=== PATIENT | female | born 1970 | race Caucasian/White ===

== ENCOUNTER 2025-06-05 16:09 | Outpatient (CLI) | payer OTHER, SELFPAY ==
--- NOTE | 2025-06-05 16:11 | DI.RAD_ITS ---
Exam(s) XR LUMBAR SPINE AP, LAT EXAM: XR LUMBAR SPINE AP, LAT CLINICAL HISTORY: leg weakness and back pain. TECHNIQUE: 2D digital imaging was performed of the lumbar spine. Three images were obtained. AP, lateral and L5-S1 spot views were obtained. COMPARISON: No exams were available for comparison FINDINGS: BONES: No fracture or destructive lesion. There are endplate osteophytes seen at multiple levels of the lower thoracic and upper lumbar spine. There are degenerative changes of the facets seen from L3-4 through L5-S1. DISKS: There is disc space narrowing at T12-L1. ALIGNMENT: There is a mild right convex thoracolumbar scoliosis. Lumbar spinal alignment is within normal limits. No spondylolysis or spondylolisthesis. SOFT TISSUE: Normal. IMPRESSION: Moderate degenerative changes are seen in the lumbar spine. DATA REPOSITORY: RADIATION DOSE DELIVERED:
--- NOTE | 2025-06-05 16:11 | DI.RAD_ITS ---
Exam(s) XR PELVIS AP EXAM: XR PELVIS AP CLINICAL HISTORY: eval leg pain. TECHNIQUE: 2D digital imaging was performed.One images were obtained. COMPARISON: No exams were available for comparison FINDINGS: BONES: No acute fracture is present. No bony destructive lesion is seen. There is an enthesophyte at the greater trochanter of the left femur. JOINTS: No dislocation present. There is mild joint space narrowing of the hips bilaterally. Subchondral cysts are seen in the acetabuli bilaterally. SOFT TISSUE: Normal. IMPRESSION: Mild degenerative changes seen in the hips bilaterally. DATA REPOSITORY: RADIATION DOSE DELIVERED:
== END 2025-06-05 16:10 | disposition home or self-care (01) ==
LOC: DIORS 16:10
PROVIDERS: PCP Internal Medicine; Visit Provider Student in an Organized Health Care Education/Training Program
DX: R29.898 Other symptoms and signs involving the musculoskeletal system (principal); M79.606 Pain in leg, unspecified; M47.816 Spondylosis without myelopathy or radiculopathy, lumbar region; M16.0 Bilateral primary osteoarthritis of hip
CPT/HCPCS: 72100; 72170

== ENCOUNTER 2025-09-04 01:33 | Outpatient (CLI) | payer OTHER, SELFPAY ==
[2025-09-04 15:09] LABS: HCT 41.9 % (36.0-46.0); HGB 14.1 g/dL (11.2-15.7); MCH 31.5 pg (27.0-33.0); MCHC 33.7 % (32.0-36.0); MCV 94 fL (80-95); MPV 10.5 fL (8.0-11.0); Platelet Count 304 10^3/uL (130-400); RBC 4.47 10^6/uL (3.93-5.22); RDW 12.1 % (11.7-14.6); RDW-SD 42.0 fL; WBC 6.15 10^3/uL (4.4-10.8)
[2025-09-04 15:26] LABS: Anion Gap 7.2 mmol/L (3-11); BUN 15 mg/dL (9-23); CO2 28.8 mmol/L (20.0-31.0); Calcium 9.5 mg/dL (8.3-10.6); Chloride 105 mmol/L (98-107); Glucose 82 mg/dL (74-106); Potassium 4.1 mmol/L (3.5-5.1); Sodium 141 mmol/L (136-145)
== END 2025-09-04 01:34 | disposition home or self-care (01) ==
LOC: LBO 01:34 → LBN 15:00
PROVIDERS: PCP Internal Medicine; Visit Provider Student in an Organized Health Care Education/Training Program
DX: M17.12 Unilateral primary osteoarthritis, left knee (principal); Z01.818 Encounter for other preprocedural examination
CPT/HCPCS: 80048; 85027

== ENCOUNTER 2025-09-04 14:22 | Outpatient (CLI) | payer OTHER, SELFPAY ==
--- NOTE | 2025-09-04 13:00 | DI.RAD_ITS ---
Exam(s) XR KNEE LT 1V XR STANDING ALIGNMENT EXAM: XR STANDING ALIGNMENT and XR knee LT 1 V CLINICAL HISTORY: L TKR Planning. TECHNIQUE: 2D digital imaging was performed. Five images were obtained. COMPARISON: CR XR KNEE COMPLETE MIN 4V LT from 11/13/2023 CR XR PELVIS AP from 06/05/2025 FINDINGS: BONES: There is asymmetric joint space narrowing in the hips bilaterally consistent with osteoarthritis. In the left knee, there is marked narrowing of both the medial femoral tibial and patellofemoral joints. There osteophytes seen in all 3 joint compartments. There is no significant joint effusion. In the right knee, moderate degenerative changes are present characterized by joint space narrowing and osteophytes. The findings are most marked in the lateral femoral tibial joint. The ankles are well maintained.There is no significant leg length discrepancy. SOFT TISSUE: Normal. IMPRESSION: Marked osteoarthritis in the left knee, moderate osteoarthritis of the right knee. DATA REPOSITORY: RADIATION DOSE DELIVERED:
== END 2025-09-04 14:23 | disposition home or self-care (01) ==
LOC: DIORS 14:23
PROVIDERS: PCP Internal Medicine; Visit Provider Physician Assistant
DX: M17.12 Unilateral primary osteoarthritis, left knee (principal); M17.11 Unilateral primary osteoarthritis, right knee
CPT/HCPCS: 73560; 77073

== ENCOUNTER 2025-09-16 05:34 | Day surgery (SDC) | payer OTHER, SELFPAY ==
[2025-09-16] VITALS (31 sets, daily range): BP systolic 117–156; BP diastolic 55–92; PULSE 61–84; RESP 10–26; TEMP 35.9–36.5; O2SAT 92–98; BMI 44.7
--- NOTE | 2025-09-16 07:01 | W.ANESPRE ---
General Info Date of Service Date Performed: 09/16/25 Height: 5 ft 7 in Weight: 129.6 kg Body Mass Index (BMI): 44.7 Surgical Procedure: Operation Date: 09/16/25 07:40 Proposed Procedure Side Surgeon p Knee Total Arthroplasty Left Alexx Ziegler MD Meds Allergies and Home Medications Allergies Allergy/AdvReac Type Severity Reaction Status Date / Time Bleach (Sodium Hypochlorite) Allergy Severe Skin Rash Verified 09/16/25 06:12 Home Medication ?Medication ?Instructions ?Recorded clotrimazole 1 % topical cream 1 applic topical BID 12/17/24 nystatin 100,000 unit/gram topical 1 applic topical DAILY 12/17/24 cream tirzepatide (weight loss) 5 mg/0.5 5 mg subcut QWEEK 02/20/25 mL subcutaneous pen injector (Zepbound) diphenhydramine HCl 25 mg capsule 25 mg PO QHS PRN 09/04/25 docusate sodium 100 mg capsule 100 mg PO DAILY 09/04/25 (Colace) psyllium husk 0.4 gram capsule 0.4 g PO DAILY 09/04/25 (Daily Fiber) acetaminophen 500 mg tablet 1,000 mg (2 x 500 mg) PO Q8H PRN 09/16/25 pain #90 tabs aspirin 81 mg tablet,delayed 81 mg PO BID 30 days #60 tabs 09/16/25 release celecoxib 200 mg capsule (Celebrex) 200 mg PO BID PRN #60 caps 09/16/25 dexamethasone 4 mg tablet 4 mg PO DAILY #2 tabs 09/16/25 docusate sodium 100 mg capsule 100 mg PO BID #28 caps 09/16/25 (Colace) gabapentin 300 mg capsule 300 mg PO QHS #14 caps 09/16/25 oxycodone 5 mg tablet 5 mg PO Q4H PRN #18 tabs 09/16/25 pantoprazole 40 mg tablet,delayed 40 mg PO DAILY #14 tabs 09/16/25 release Current Visit Medications: Current Medications Generic Name Dose Route Start Last Admin Trade Name Freq PRN Reason Stop Dose Admin Acetaminophen 1,000 mg 09/16/25 06:00 Acetaminophen 500 Mg Tab PO 09/16/25 23:59 PREOP ARMANDO Celecoxib 400 mg 09/16/25 06:00 Celecoxib 200 Mg Cap PO 09/16/25 23:59 PREOP ARMANDO Gabapentin 300 mg 09/16/25 06:00 Gabapentin 300 Mg Cap PO 09/16/25 23:59 PREOP ARMANDO Ringer's Solution 1,000 mls @ 80 mls/hr 09/16/25 06:00 IV 09/16/25 23:59 INFUSION ARMANDO Cefazolin Sodium 3,000 mg/ 100 mls @ 200 mls/hr 09/16/25 06:00 Sodium Chloride IV 09/16/25 23:59 PREOP ARMANDO Tranexamic Acid/Sodium Chloride 1,000 mg in 100 mls @ 600 mls/hr 09/16/25 06:00 IVPB 09/16/25 23:59 PREOP ARMANDO Sodium Chloride 0 ml 09/16/25 06:00 Normal Saline Flush 10 Ml Syr IV 09/16/25 23:59 PRN PRN Sodium Chloride 0 ml 09/16/25 06:00 Normal Saline 10 Ml Vial IJ 09/16/25 23:59 DIRECTED PRN Sterile Water 0 ml 09/16/25 06:00 Water,Injection,Sterile 10 Ml Vial IJ 09/16/25 23:59 DIRECTED PRN PFSH Active Problems Active Problems: Problem Status Onset Code Lumbar spinal stenosis Acute M48.061 Lumbar spondylosis Acute M47.816 Osteoarthritis of left knee Acute M17.12 Vitamin D deficiency Acute E55.9 Umbilical hernia Acute K42.9 Subclinical hypothyroidism Acute E03.8 PTSD (post-traumatic stress disorder) Acute F43.10 (nonalcoholic steatohepatitis) Acute K75.81 Morbid obesity Acute E66.01 Menorrhagia Acute N92.0 Hernia of anterior abdominal wall Acute K43.9 Depressive disorder Chronic F32.A Chronic fatigue syndrome Acute G93.32 Asthma Chronic J45.909 Medical History Medical History Family history of blood clots Constipation CSF leak Surgical History Surgical History History of endometrial biopsy History of knee surgery History of hysterectomy History of ventral hernia repair Tobacco Smoking/Tobacco Use Status: Former Tobacco Use Passive smoking exposure: No Alcohol Alcohol Intake: former Substance Use Substance use type: does not use Vital Signs and Lab Results Vital Signs Most Recent Vital Signs in EMR: Most Recent Vital Signs Temp Pulse Resp BP Pulse Ox 36.5 C 71 20 148/72 H 98 09/16/25 06:25 09/16/25 06:25 09/16/25 06:25 09/16/25 06:25 09/16/25 06:25 Lab Results Complete Blood Count: WBC, (4.4-10.8) 6.15 10^3/uL 09/04/25, 13:45 RBC, (3.93-5.22) 4.47 10^6/uL 09/04/25, 13:45 Hgb, (11.2-15.7) 14.1 g/dL 09/04/25, 13:45 Hct, (36.0-46.0) 41.9 % 09/04/25, 13:45 Plt Count, (130-400) 304 10^3/uL 09/04/25, 13:45 Complete Metabolic Panel: Sodium, (136-145) 141 mmol/L 09/04/25, 13:45 Potassium, (3.5-5.1) 4.1 mmol/L 09/04/25, 13:45 Chloride, (98-107) 105 mmol/L 09/04/25, 13:45 Carbon Dioxide, (20.0-31.0) 28.8 mmol/L 09/04/25, 13:45 BUN, (9-23) 15 mg/dL 09/04/25, 13:45 Creatinine, (0.55-1.02) 0.67 mg/dL 09/04/25, 13:45 Est GFR (CKD-EPI 2020), (mL/min/1.73m2) 91.57 09/04/25, 13:45 Calcium, (8.3-10.6) 9.5 mg/dL 09/04/25, 13:45 Glucose, (74-106) 82 mg/dL 09/04/25, 13:45 Anesthesia Assessment and Plan Anesthesia History Personal History: No History of Anesthesia Complications Family History: No Family History of Anesthesia Complications Exercise Tolerance Exercise Tolerance: Metabolic Equivalents<4 Pertinent Negatives Pertinent Negatives: No Symptoms of GERD, No Major Cardiovascular Symptoms or Complaints and No Major Pulmonary Symptoms or Complaints Cardiac & Pulmonary Exam Cardiac Exam: Normal S1/S2 Heart Sounds Pulmonary Exam: Clear Bilateral Breath Sounds (diminished) Implantable Cardiac Device Does patient have a Pacemaker or an ICD?: No Airway Exam Known Difficult Airway: No Mallampati Class: 3 Mouth Opening: Normal (> 3cm) Thyromental Distance: Less than 3 cm Neck Range of Motion: Full ROM Neck Circumference: Thick Teeth Condition: Normal Dentition ASA Classification ASA Score: ASA 3 Emergency Case?: No NPO Status NPO Status: NPO Clears >2 hours, Solids >8 hours Status Status: History of Hysterectomy Anesthesia Plan Resuscitation Status: Full Code Anesthesia Technique: Spinal Anesthesia Airway Planned: Natural Airway Pain Management: Surgeon and patient request nerve block Monitors Used: Standard Monitors
--- NOTE | 2025-09-16 07:02 | PDOC.DSDIS_ITS ---
Date of service: 09/16/25 Discharge Plan Disposition Patient Disposition: Home Condition: Good Discharge Details Reason For Visit: Left knee DJD Attending Provider: Alexx Ziegler Primary Care Provider: Sandy Mahoney Home Meds and New Rx's Prescriptions: New celecoxib [Celebrex] 200 mg capsule 200 mg PO BID PRNQty: 60 0RF Rx Instructions: Take one tablet twice daily for pain and inflammation aspirin 81 mg tablet,delayed release (DR/EC) 81 mg PO BID 30 Days Qty: 60 0RF acetaminophen 500 mg tablet 1,000 mg PO Q8H PRN Qty: 90 0RF Rx Instructions: Take two tablets up to every 8 hours as needed for pain pantoprazole 40 mg tablet,delayed release (DR/EC) 40 mg PO DAILY Qty: 14 0RF Rx Instructions: Take one tablet once daily dexamethasone 4 mg tablet 4 mg PO DAILY Qty: 2 0RF Rx Instructions: Take one tablet once daily for two days docusate sodium [Colace] 100 mg capsule 100 mg PO BID Qty: 28 0RF gabapentin 300 mg capsule 300 mg PO QHS Qty: 14 0RF Rx Instructions: Take one tablet at bedtime oxycodone 5 mg tablet 5 mg PO Q4H PRNQty: 18 0RF Rx Instructions: Take one tablet up to every 4 hours as needed for severe postoperative pain Continued diphenhydramine HCl 25 mg capsule 25 mg PO QHS PRN docusate sodium [Colace] 100 mg capsule 100 mg PO DAILY psyllium husk [Daily Fiber] 0.4 gram capsule 0.4 g PO DAILY clotrimazole 1 % cream 1 applic topical BID nystatin 100,000 unit/gram cream 1 applic topical DAILY Zepbound 5 mg/0.5 mL pen injector 5 mg subcut QWEEK Discontinued acetaminophen [Acetaminophen Extra Strength] 500 mg tablet 500 mg PO ONCE Patient Comments: 1000 mg dose naproxen sodium [Aleve] 220 mg capsule 220 mg PO ONCE Patient Comments: 440 mg Discharge Instructions Additional Instructions: Total Knee Discharge Instructions Activity: The most important activity is to walk and to work on gentle motion (both flexion and extension). You should try to take short walks a few times a day. It is important that when resting you work on keeping the knee straight. Avoid putting a pillow behind the knee as this will encourage flexion. Work on range of motion exercises as provided by Physical Therapy. - Start outpatient physical therapy within 2 weeks. - You should wear the MO hose on both legs for 2 weeks. You may remove these at night. You may also use any compression sock in place of the MO hose. - Utilize [employer] to review exercises, see videos on exercises and o btain basic information pertaining to your surgery and your recovery. Dressing: Remove the Jayden wrap by 2 days after your surgery and put on the MO stocking given to you from the hospital. Keep the surgical dressing (underneath the JAYDEN wrap) in place for at least one week. After the first week it may be removed and replaced with light gauze and tape or nothing. The wound and dressing may get wet after 3 days but avoid soaking the dressing or otherwise it will need to be changed. Many people prefer covering the dressing with cling wrap (saran wrap) to minimize it from getting soaked. If it gets wet, just pat dry. If it starts to peel off then it will need to be changed. Medications: - You should take Tylenol and anti-inflammatory Celebrex as your primary pain control medications. If the Celebrex is too expensive or not covered, please call the office for another alternative (Advil/Ibuprofen or Naproxen/Aleve) - You have been prescribed a stronger pain medication Oxycodone for breakthrough pain, take as needed as prescribed. - You have also been prescribed a stomach acid reduction agent Pantoprozole to help reduce stomach acid and reflux. - You have been prescribed Gabapentin to take at night for restlessness and nerve pain. - You will be taking Aspirin 81mg twice a day for DVT prevention unless instructed otherwise. - You have also been prescribed Decadron to take to control post-operative nausea and pain. You will start this tomorrow. - If you have constipation you should take Colace (which has been prescribed) or Miralax (which is available [id number]). It takes most people 3-4 days to have a bowel movement. Follow-up: 2 weeks If you have any acute concerns or questions, please do not hesitate to contact the office at [phone]. You may contact Dr. Ziegler with any questions after hours through the hospital at [phone] or on his cell phone at [phone]. Stand Alone Forms: Portal Information Referrals: Alexx Ziegler MD [ [id number] STAFF PHYSICIAN, Orthopaedic Surgical] Equipment/Supplies: Walker Activity:: Elevate Remove Dressings/Wound Care:: Do Not Remove Shower/Bathe:: Cover Diet:: As Tolerated Discharge Orders Discharge Orders: Discharge Order (Routine); Ordered 09/16/25 Ordered By: Rosy Meza
[2025-09-16] MEDS: Lactated Ringers 1,000 ML 80 ML IV (07:12)
[2025-09-16] MEDS: Celecoxib 200 MG CAP 400 MG PO (07:14)
[2025-09-16] MEDS: Acetaminophen 500 MG TAB 1000 MG PO (07:14)
[2025-09-16] MEDS: Gabapentin 300 MG CAP PO (07:14)
[2025-09-16] MEDS: ceFAZolin 3,000 MG in Normal Saline 100 ML 200 MG IV (07:33)
[2025-09-16] MEDS: TRANEXAMIC ACID/SOD. CHL. 1,000 MG/100 ML BAG 600 MG IVPB (07:47)
--- NOTE | 2025-09-16 07:58 | W.ANESNERVE ---
Nerve Block Single Injection Procedure Date and Time Date Performed: 09/16/25 Procedure Start: 07:20 Location Where Procedure Performed Procedure Location: Day Surgery Unit Reason Performed: Postoperative Analgesia Requesting Provider: Alexx Ziegler Timeout Performed Timeout Performed: Yes Monitoring Used ECG, Blood Pressure, SpO2 and See EMR for corresponding vital signs Sterility Sterility: Hand Hygiene, Surgical Cap, Surgical Mask, Sterile Gloves, Sterile Drape/Sheet and Chlorhexidine Sedation Given During Procedure Sedation Given (Indicate Dose Given): Versed IV Dose:: 2 mg Patient Mental Status Patient Mental Status: Sedate with meaningful communication Nerve Block 1st Nerve Block: Laterality: Left Block Type: Adductor Canal Ultrasound Image Saved?: Yes Needle / Catheter Used: 120mm SonoPlex II Local Anesthetic Bolus (Indicate Dose Given): Lidocaine used for local infiltration of skin, Injected in 3-5ml increments after negative blood aspiration, Blood noted on aspiration (First pass positive heme, needle removed, line cleared and re-inserted, no further heme ), Bupivacaine 0.25% Dose:: 10 ml and Exparel Dose:: 10 ml Additives (Indicate Dose Given): None Ultrasound: Sterile probe cover and gel used Nerve Stimulator: Supplement to Ultrasound use, Expected parasthesia or motor response elicited and No twitch or parasthesia noted < 0.5 mA Paresthesia: None Procedure Tolerated: No Complications and Patient tolerated well Procedure Outcome: Successful Procedure Comment: Difficult visualization due to body habitus Performed By: Sonam Rodriguez
[2025-09-16] MEDS: ROPIvacaine/EPI/CLONIDINE/KET 50 ML SYRINGE IJ (08:12)
--- NOTE | 2025-09-16 09:06 | W.PM.OP ---
Operative Note Operative Note PRE-OP DIAGNOSIS: Left Knee Osteoarthritis POST-OP DIAGNOSIS: same PROCEDURE: Left Total Knee Replacement SURGEON: Alexx Ziegler HAND TENNIS BALL COVERER: Rosy Meza ANESTHESIA TYPE: Spinal Refer to Anesthesia Record ESTIMATED BLOOD LOSS: 100 PATHOLOGY: none sent TOURNIQUET TIME: 0 COMPLICATIONS: None Patient was transported to: PACU Patient's condition: stable Implants: 1. Depuy Attune Cementless Cruciate Retaining Femoral Component, Size 5 2. Depuy Attune Cementless Fixed Bearing Tibial Component, Size 5 3. Depuy Attune 5x8mm CR/FB Poly 4. Depuy Attune Patellar Component, Size 35mm Indications: I have seen Sima in clinic for symptoms of knee arthritis, confirmed with radiographic findings. She has exhausted nonoperative methods and was having significant limitations in daily function and desired better function and less pain. I discussed the technical details of a knee replacement. I explained the risks of the procedure to include, but not limited to, bleeding, infection, pain, stiffness, fracture, damage to nerves and vessels, damage to muscles and tendons, loosening, need for repeat procedure, blood clot and cardiopulmonary demise. Despite these risks, Sima elected to proceed. Findings: There was significant signs of arthritis throughout the knee involving all 3 compartments with large osteophytes throughout. Procedure Description: Sima was greeted in the preoperative holding area where the correct side was identified and marked. The consent was reviewed with the patient and signed. The history and physical was updated. All questions were answered. Preoperative medications were administered: Acetaminophen 1000mg, Celebrex 400mg, and Gabapentin 300mg. An adductor canal block was then administered by the anesthesia team in the DSU. She was taken back to the operating room. A spinal anesthestic was then administered. The patient was placed into the supine position on the operating room table. Posts were placed for positioning during the procedure. All bony prominences were well padded. Prophylactic antibiotics in the form of Cefazolin were administered. 1g of Tranxemic Acid was given intravenously within 30 minutes of incision. The left leg was then prepped with Chloraprep and draped in a standard fashion with impervious stockinette. A second prep with Chloraprep was performed prior to application of Iodine impregnated skin protection. A timeout to confirm correct identity, side and site, procedure, allergies, anesthesia, and medical concerns was performed. With the knee in some flexion, a midline incision was made overlying the knee. Full thickness skin flaps were raised once the extensor mechanism was encountered. These were raised medially and laterally. Any bleeding was controlled with electrocautery. Once the extensor mechanism was fully exposed, a medial parapatellar arthrotomy was performed in a flexed position. All bleeding from the arthrotomy and the geniculate arteries was coagulated. A medial subperiosteal peel was performed with electrocautery to the midcoronal plane. The fat pad was removed while keeping the patellar tendon protected. The anterior distal femur synovium was removed for later visualization. The ACL and PCL were resected and the anterior horn of the lateral meniscus was transected. The knee was then flexed with the patella everted. Large osteophytes from the tibia were removed. Large osteophytes from the femur were removed. There were notable arthritic changes throughout all 3 compartments of the knee. Using a step drill, and based on preoperative templating, the femoral canal was entered. This was done with a step drill without any difficulty. The intramedullary distal femoral cut guide was inserted, set to a 5 degree valgus cut and 9mm cut thickness. The distal femoral cut guide was then held in position and pinned. With the soft tissues protected, the distal cut was performed. This was passed over a few times to ensure a planar cut. I then turned attention to the tibia. The extramedullary guide was placed onto the leg. The distal aspect was slid medial to adjust for position of center of ankle and stay in line with shaft of the tibia. Approximately 5 degrees of posterior slope was kept in the proximal cutting guide. The center of the guide was aligned with the PCL. The stylus was used to assess cut thickness. The medial side, most involved side, was set for a 6mm cut, which corresponded to 8 to 9 mm laterally. This was then held in position and pinned into place with 2 additional pins and a cross pin for stability. The medial and lateral collateral ligaments were protected and the cut was performed. With this completed, it was assessed and noted to be of appropriate dimensions. The guide was removed. A spacer block was inserted and the knee was brought into extension. The 7mm spacer block provided full extension, without hyperextension and with stability of both the medial and lateral collateral ligaments was assessed. The pins from the femur and the tibia were then removed. The distal femur was then sized. The anterior stylus was placed onto the lateral ridge of the anterior femur. This indicated a size 5 femur. The external rotation of the guide was adjusted to 0 degrees to match the epicondylar axis, perpendicular to Salome?s line. The 4-in-1 cutting guide was the placed. The posterior medial femur cut was evaluated and appeared of good thickness. The spacer block was inserted underneath the cutting guide and stability was confirmed in 90 degrees of flexion. An roseanna wing was used to confirm appropriate position of the anterior cut to avoid notching. This cutting guide was ensured to be flush on the cut surface and then pinned into place with headed pins. While protecting the soft tissues, quad tendon, and collateral ligaments, the anterior and posterior cuts were performed with a saw. The central two pins were removed and the posterior and anterior chamfers were cut next. The notch-cutting guide was placed. This was pinned to lateralize the femoral component as much as possible while keeping it flush on the cut surface. This was then pinned into position. A reciprocating saw was used to make the notch cut. A rasp smoothed the cut surfaces. The medial and lateral menisci were removed. A trial femoral component was then inserted, impacted down to the cut surfaces, and the lug holes were drilled. A provisional trial tibial component was placed and the knee was brought through range of motion. The polyethylene was trialed until there was good flexion and extension with excellent stability to the medial and lateral collaterals. The patella was tracking without thumbs. A size 8mm polyethylene component provided the best range of motion and stability with less than 2mm gapping with medial and lateral stress and full extension without significant hyperextension. The tibial cut surface was fully exposed. The tibia was then sized as a 5. The tibia had been previously marked during trialing to correspond to the center of the tibial component to help with rotation. The trial was aligned to this ni, approximately rotated to the medial 1/3rd of the tibial tubercle. The trial was pinned into place. The tibia was prepared with a reamer and a keel punch and lug holes. The knee was then brought into extension and the patella was measured as 24mm. Using the patellar clamp and cut guide, this was resected to a flat surface with at least 13mm of thickness remaining. The size 35mm patella fit the best. This was oriented and then clamped into position. The lugs were drilled. The trial components were removed. The final components were opened on the back table. The periosteal and capsular tissues, especially posteriorly, around the knee were then systematically injected with a periarticular cocktail consisting of 246mg of Ropivacaine, 0.5mg of Epinephrine, 0.08mg of Clonidine, and 30mg of Ketorolac, diluted to 100cc. On the back table, with the implants opened. The cement was mixed. One batch of high viscosity cement was prepared with vacuum assistance. After the cement was ready a small amount was placed on the cut surface of the patella and the patellar button was clamped into position and held. The cementless knee components were placed. Starting with the tibial component, the tibia was subluxed anteriorly and the lug holes of the component were lined up. The tibia was then impacted with an impactor and mallet until the tibial component was in contact with the tibia. Then, the femoral component was inserted. The lug holes were aligned and the component was impacted into position. The final polyethylene component was inserted. The knee was irrigated with Surgiphor Betadine solution. This was allowed to sit in the knee for 3 minutes and then it was irrigated out with saline. After the cement had finally cured, approximately 15min, the clamp was removed from the patella and the knee was taken through range of motion. The patella was tracking with a no-thumbs technique. A complete synovectomy was performed around the periphery of the patella. The capsule was then reapproximated with a No. 1 Vicryl at multiple locations. The capsule was finally closed with a No. 2 Stratafix, barbed suture. Deep tissues were then reapproximated with 0 Vicryl and 2-0 Vicryl. The skin was closed with a running 3-0 Monocryl in a subcuticular fashion. This was reinforced with skin glue. A Mepilex silver dressing was applied along with a [id number] ALEXANDRO wrap. A CryoCuff was applied. Sima was transferred to the hospital bed without difficulty an suffering no apparent complication. She has a good prognosis. Physical therapy will start today and without restrictions, weight-bearing as tolerated. Aspirin 81mg BID will be used for DVT prophylaxis. Date of Procedure: 09/16/25
--- NOTE | 2025-09-16 10:38 | PT.INIE ---
PT Notes Visit Reasons: Left knee DJD Physical Therapy Day Surgery Initial Evaluation Date: 09/16/2025 Referring Doctor: JOSE Dejesus PT Orders: PT CONSULT: S/P Ortho surgery Precautions: WBAT through the left LE with AD. Patient Profile/Admitting Diagnosis: Sima is a 55-year-old female with degenerative joint disease of the left knee and is status post left total knee arthroplasty on postoperative day 0. Adductor canal block was done and spinal anesthesia used intraoperatively. EBL 100 mL. PMHX: All Active Problems (Updated 06/06/25 @ 11:45 by Alexx Ziegler MD) Lumbar spinal stenosis (Acute) Lumbar spondylosis (Acute) Osteoarthritis of left knee (Acute) DEPO MEDROL 06/05/25; 02/20/25Vitamin D deficiency (Acute) Umbilical hernia (Acute) Subclinical hypothyroidism (Acute) PTSD (post-traumatic stress disorder) (Acute) (nonalcoholic steatohepatitis) (Acute) Morbid obesity (Acute) Menorrhagia (Acute) Hernia of anterior abdominal wall (Acute) Depressive disorder (Chronic) Chronic fatigue syndrome (Acute) Asthma (Chronic) Medical History Constipation History of endometrial biopsy CSF leak Surgical History History of knee surgery History of hysterectomy History of ventral hernia repair Social History/Home Situation: Will be staying at her sister's house as she recovers. Has a half step to get into sister's house. 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 Equipment Owned/DME: None Subjective: Patient reported 3?4/10 pain in the left knee which nurse Magaly is aware of and has been managing. Denied headache, chest pain, and lightheadedness throughout session. Objective: General Observation: Resting in bed. ALEXANDRO wraps to left LE. Cryocuff to left knee. TEDS to right leg and foot. Mental Status: A and O x 4 Pain: 3-4/10 in the L knee at rest and with movement ROM: Right Lower Extremity: Hip flexion WFL. Hip abduction WFL. Knee flexion WFL. Ankle dorsiflexion WFL. Ankle plantarflexion WFL. Left Lower Extremity: Hip flexion WFL. Hip abduction WFL. Knee flexion 20 degrees to 85 degrees. Knee extension -20 degrees. Ankle dorsiflexion WFL. Ankle plantarflexion WFL. Strength: Right Lower Extremity: Hip flexors 5/5. Hip abductors 5/5. Knee flexors 5/5. Knee extensors 5/5. Ankle dorsiflexors 5/5. Ankle plantarflexors 5/5. Left Lower Extremity:Hip flexors 4-/5. Hip abductors 4-/5. Knee flexors3-/5. Knee extensors 3-/5. Ankle dorsiflexors 4/5. Ankle plantarflexors 5/5. Sensation: Intact this to pain and light pressure in bilateral lower extremities Bed Mobility/Transfers: Minimal cueing provided for use of B hands as needed for support, movement sequence, AD management, and posture to reduce fall risk and minimize pain report Supine to sit stand by assist Sit to stand contact guard assist Stand to sit stand by assist with FWW Bed to chair stand by assist with FWW Gait: Facilitate safe and correct performance of level surface ambulation covering a distance of 150 feet with initially step to gait pattern but was able to progress to step through towards the latter part of the walking activity. Standby assist only using front wheeled walker with minimal verbal cueing provided for limb movement sequence, increased flexion on the left LE during swing phase on the left side, AD management, and posture to minimize pain report and reduce fall risk. Stairs: Guided patient with safe and correct negotiation of 3 x 4 inch steps and 2 x 6 inch steps while holding onto bilateral rails with step to gait pattern requiring only contact-guard assist and minimal verbal cueing for limb movement sequence, hand placement, weight distribution onto rail, increased flexion on the left during each ascent, and posture to minimize pain reported reduce fall risk. Balance: Static Sitting: Normal Dynamic Sitting: Good Static Standing: Fair Dynamic Standing: Fair Special Tests: Mobility Limitations Standardized Measure [facility] AM-PAC 6 clicks Basic Mobility Inpatient Short Form: Raw Score: 22 CMS Score: 21% deficit Informed Consent/Education: Patient instructed in purpose of PT consult. Packet containing TKA exercise protocol has been given to patient. Education and training on initial set of exercises that can be done at home have been completed with patient. Trained patient with correct performance of exercises below to maximize motor control, joint flexibility, soft tissue extensibility of the L knee musculature: Access Code: [email or web address] URL: [email or web address] Date: 04/25/2023 Prepared by: Monserrat Gilmore Exercises - Supine Quad Set - 1 x daily - 7 x weekly - 1 sets - 10 reps - 5 hold - Supine Heel Slide - 1 x daily - 7 x weekly - 1 sets - 10 reps - 5 hold - Supine Ankle Pumps - 1 x daily - 7 x weekly - 1 sets - 10 reps - 5 hold - Small Range Straight Leg Raise - 1 x daily - 7 x weekly - 1 sets - 10 reps - 5 hold - Seated March - 1 x daily - 7 x weekly - 1 sets - 10 reps - 5 hold Assessment: Patient required the use of a bariatric front-wheeled walker for all mobility ADL performance to maximize independence and reduce fall risk.Patient presents with clinical signs and symptoms consistent with current/admitting diagnoses that have resulted to mobility limitations, gait instability, generalized weakness, and impairment of motor control as demonstrated by the following impairment level findings: 1. Decreased strength to left knee major muscle groups 2. Impaired standing balance 3. Limitation of joint range of motion in left knee Impairments are contributing to the following functional limitations: 1. Inability to safely ambulate without assistive device 2. Increase completion time for mobility ADL performance 3. Increased fall risk Patient is assessed as a 18141 low complexity based on the following: History: 55-year-old female with impairment level findings, functional limitations, and past medical history as indicated above Examination: Demonstrable impairment in strength, balance, and mobility level with underlying impairments and functional limitations as documented above Presentation: Evolving Decision Makin moderate complexity Goals: N/A. PT evaluation and 1-2 treatment sessions only for functional mobility training using recommended AD and for HEP instruction. Plan of Care/Treatment Plan: N/A. PT evaluation and 1-2 treatment session only for functional mobility training using recommended AD and for HEP instruction. DISCHARGE RECOMMENDATIONS: [] TREATMENT CODE/TIME: 15498 x 20 minutes for 1 unit, 99507 x 28 minutes for 2 units (10:38?11:26). Thank you for the opportunity to participate in the care of this patient. Monserrat Gilmore PT, DPT, CLT [facility] [place], [place]
--- NOTE | 2025-09-16 11:06 | W.ANESPOSTOP ---
Postoperative Evaluation Date, Time and Location Date Performed: 09/16/25 Time Performed: 10:20 Patient Location: Day Surgery Unit Vital Signs Most Recent Imported Vital Signs: Most Recent Vital Signs Temp Pulse Resp BP Pulse Ox 36.3 C L 79 18 156/81 H 98 09/16/25 10:30 09/16/25 10:30 09/16/25 10:30 09/16/25 10:30 09/16/25 10:30 Pain Score Most Recent Pain Score: Most Recent Pain Score Pain Level 3 09/16/25 10:30 Assessment Mental Status: Awake (Alert & Oriented to Patient Baseline) Airway and Respiratory Function: Patent airway with normal (patient baseline) respiratory exam Cardiovascular Function: Hemodynamically Stable Hydration Status: Adequately Hydrated Nausea & Vomiting: No Nausea or Vomiting Pain: Pain is tolerable per patient Peripheral Nerve Block: Regional nerve block not resolved at time of post operative discharge
[2025-09-16] MEDS: Tranexamic Acid 650 MG TAB 1300 MG PO (11:35)
[2025-09-16] MEDS: oxyCODONE 5 MG TAB PO (11:35)
== END 2025-09-16 13:26 | disposition home or self-care (01) ==
PROVIDERS: PCP Internal Medicine; Visit Provider Student in an Organized Health Care Education/Training Program
PROC: (CPT 27447; principal; 2025-09-16 07:30)
DX: M17.12 Unilateral primary osteoarthritis, left knee (principal); G89.18 Other acute postprocedural pain
CPT/HCPCS: 27447; 64447; 97162; 97530; C1776; J0665; J0666; J0690; J1100; J2250; J2401; J2405; J2704

== ENCOUNTER 2025-09-29 15:27 | Outpatient (CLI) | payer OTHER, SELFPAY ==
--- NOTE | 2025-09-29 13:29 | DI.RAD_ITS ---
Exam(s) XR STANDING ALIGNMENT EXAM: XR STANDING ALIGNMENT CLINICAL HISTORY: 1ST POST OP S/P L TKA. TECHNIQUE: 2D digital imaging was performed. COMPARISON: Prior x-rays 09/04/2025 FINDINGS: 3 views There has been interval placement of a left knee prosthesis which appears satisfactory. Moderate degenerative changes in the opposite-right knee are again noted. Hips appear unchanged. Ankles unchanged. IMPRESSION: As above. DATA REPOSITORY: RADIATION DOSE DELIVERED:
--- NOTE | 2025-09-29 13:29 | DI.RAD_ITS ---
Exam(s) XR KNEE LT 1V EXAM: XR KNEE LT 1V CLINICAL HISTORY: 1st post op s/p L TKA. TECHNIQUE: 2D digital imaging was performed. COMPARISON: CR XR KNEE LT 1V from 09/04/2025 FINDINGS: Single lateral view There is satisfactory position alignment of the recently placed components of the left knee prosthesis. No fracture or loosening evident. IMPRESSION: Satisfactory appearance on this single lateral view. DATA REPOSITORY: RADIATION DOSE DELIVERED:
== END 2025-09-29 15:28 | disposition home or self-care (01) ==
LOC: DIORS 15:28
PROVIDERS: PCP Internal Medicine; Visit Provider Student in an Organized Health Care Education/Training Program
DX: Z96.652 Presence of left artificial knee joint (principal)
CPT/HCPCS: 73560; 77073